=== PATIENT | male | born 2000 | race Caucasian/White ===

== ENCOUNTER 2022-07-05 12:29 | Outpatient (REF) | payer BC, SELFPAY ==
[2022-07-05 12:44] LABS: MANUAL DIFF FLAG NO
[2022-07-05 13:24] LABS: Basophils Absolute Auto 0.1 X10*3/uL (0.0-0.2); Basophils Percent Auto 0.6 % (0-2); Eosinophils Absolute Auto 0.2 X10*3/uL (0.0-0.4); Eosinophils Percent Auto 1.8 % (0-4); Hematocrit 50.3 % (42.0-52.0); Imm Gran Abs Auto 0.03 X10*3/uL (0.00-0.03); Imm Gran Pct Auto 0.3 % (0.0-0.4); Lymphocytes Absolute Auto 2.2 X10*3/uL (1.2-4.9); Lymphocytes Percent Auto 24.9 % (20-40); Mean Corpuscular HGB Conc 33.8 g/dl (31.0-36.0); Mean Corpuscular Hemoglobin 28.1 pg (27.0-33.0); Mean Corpuscular Volume 83.3 fL (80.0-98.0); Mean Platelet Volume 10.7 fL (9.4-12.4); Monocytes Absolute Auto 0.6 X10*3/uL (0.1-1.2); Monocytes Percent Auto 6.5 % (2-11); Neutrophils Absolute Auto 5.8 x10*3/uL (2.0-8.3); Neutrophils Percent Auto 65.9 % (45-73); Platelet Count 389 X10*3/uL (160-400); Red Blood Count 6.04 X10*6/uL (4.60-5.80); Red Cell Distribution Width 12.2 % (11.0-16.0); White Blood Count 8.8 X10*3/uL (4.8-10.8)
[2022-07-05 13:53] LABS: Alanine Aminotransferase 71 U/L (0-40); Albumin Level 4.8 g/dL (3.5-5.0); Alkaline Phosphatase 65 U/L (39-117); Anion Gap 15 (12-20); Aspartate Amino Transferase 30 U/L (5-37); Bilirubin Total 0.9 mg/dL (0.0-1.0); Blood Urea Nitrogen 17 mg/dL (9-16); Calcium 10.2 mg/dL (8.4-10.2); Carbon Dioxide 26 mmol/L (22-29); Chloride 106 mmol/L (96-108); Cholesterol 133 mg/dL; Estimated Glomerular Filt Rate > 60; Glucose Random 85 mg/dL (60-115); HDL Cholesterol 31 mg/dL; LDL Cholesterol Calculated 83 mg/dl; Potassium 4.8 mmol/L (3.3-5.1); Sodium 142 mmol/L (135-145); Total Protein 7.5 g/dL (6.5-8.0); Triglycerides 96 mg/dL
[2022-07-05 14:22] LABS: Folate 8.1 ng/mL (> or = 4.0); Thyroid Stimulating Hormone 1.36 uIU/mL (0.32-4.0); Vitamin B12 621 pg/mL (200-900)
== END 2022-07-05 12:30 | disposition home or self-care (01) ==
LOC: HO.LAB 12:29
PROVIDERS: PCP Internal Medicine; Visit Provider Internal Medicine
DX: E66.9 Obesity, unspecified (principal); E78.00 Pure hypercholesterolemia, unspecified
CPT/HCPCS: 36415; 80053; 80061; 82607; 82746; 84439; 84443; 85025

== ENCOUNTER 2022-07-31 09:26 | Outpatient (REF) | payer BC, SELFPAY ==
--- NOTE | ~2022-07-31 | US_ITS ---
EXAMINATION: US ABDOMEN LIMITED CLINICAL INFORMATION: Other specified abnormal findings of blood chemistry. COMPARISON: None available. TECHNIQUE: Real-time imaging of the right upper quadrant abdominal viscera. FINDINGS: PANCREAS: Not well seen due to shadowing from overlying bowel gas. LIVER: Enlarged measuring 17.4 cm in length. The liver contour is normal. Increased parenchymal echogenicity. No focal hepatic lesion. There is no intrahepatic biliary duct dilatation seen. GALLBLADDER: Normal. The gallbladder is physiologically distended without evidence of stones, sludge, polyps, wall thickening or pericholecystic fluid. COMMON BILE DUCT: Borderline dilated measuring 0.6 cm in diameter. RIGHT KIDNEY: Normal. No hydronephrosis. No renal calculi or focal parenchymal lesions. The kidney measures 11.0 cm in maximum dimension. FREE FLUID: None. US/US abdomen limited IMPRESSION: 1. Limited examination due to patient body habitus and shadowing from overlying bowel gas. 2. Hepatomegaly with increased parenchymal echogenicity which is nonspecific but most commonly on the basis of diffuse hepatocellular disease such as hepatic steatosis. 3. Borderline dilatation of the common bile duct. Correlate with liver function tests and if indicated MRCP could be obtained.
== END 2022-07-31 09:27 | disposition home or self-care (01) ==
LOC: HO.US 09:26
PROVIDERS: PCP Internal Medicine; Visit Provider Internal Medicine
DX: R79.89 Other specified abnormal findings of blood chemistry (principal)
CPT/HCPCS: 76705

== ENCOUNTER 2022-08-10 07:21 | Outpatient (REF) | payer BC, SELFPAY ==
[2022-08-10 15:03] LABS: Alanine Aminotransferase 54 U/L (0-40); Albumin Level 4.7 g/dL (3.5-5.0); Alkaline Phosphatase 65 U/L (39-117); Anion Gap 13 (12-20); Aspartate Amino Transferase 21 U/L (5-37); Bilirubin Total 1.1 mg/dL (0.0-1.0); Blood Urea Nitrogen 12 mg/dL (9-16); Calcium 10.1 mg/dL (8.4-10.2); Carbon Dioxide 29 mmol/L (22-29); Chloride 102 mmol/L (96-108); Estimated Glomerular Filt Rate > 60; Glucose Random 88 mg/dL (60-115); Potassium 3.9 mmol/L (3.3-5.1); Sodium 140 mmol/L (135-145); Total Protein 7.3 g/dL (6.5-8.0)
[2022-08-11 04:58] LABS: HBc Num1 0.06 S/CO (0.00-0.79); HBsAGNum1 0.29 S/CO (0.00-0.99); Hepatitis B Core Antibody Nonreactive (Nonreactive); Hepatitis B Surface Antigen Negative (Negative); ~HepC Num1 0.09 S/CO (0.00-0.79); ~Hepatitis B Surface Antibody NONREACTIVE (Nonreactive); ~Hepatitis C Antibody Nonreactive (Nonreactive)
== END 2022-08-10 07:22 | disposition home or self-care (01) ==
LOC: HO.LAB 07:21
PROVIDERS: PCP Internal Medicine; Visit Provider Internal Medicine
DX: R79.89 Other specified abnormal findings of blood chemistry (principal)
CPT/HCPCS: 36415; 80053; 86704; 86706; 86803; 87340

== ENCOUNTER 2023-04-23 12:25 | Outpatient (AMB) | payer BC, SELFPAY ==
--- NOTE | 2023-04-23 12:39 | A.OFFPC_ITS ---
Vital Signs 04/23/23 12:40 Height 6 ft 1.5 in Weight 218 lb 0.2 oz BMI 28.4 BP 112/72 Blood Pressure Location Lt brachial Position Sitting Pulse 92 Pulse Source Pulse Oximeter Pulse Oximetry (%) 99 Oxygen Delivery Method Room Air Intake Visit Reasons: PE Final Dressing Cutter Required: No Allergies No Known Allergies Allergy (Verified 04/23/23 12:40) Medication List - Last Reconciled 04/23/23 by Chester Akers MD No Known Home Meds Tobacco use date assessed: 04/23/23 Dental Screening Dental Screen Date: 04/23/23 Did you have a dental visit in the last 12 months?: Yes Did you have a dental problem in the last 6 months where you did not have access to dental care?: No Was dental information given to patient?: Patient has dentist HPI PE HPI Details 23-year-old overweight male(noted 24 lb weight loss coming in for physical exam last seen in April 2022. Had blood work done with elevated liver function tests and ultrasound of the abdomen requested showing hepatic steatosis. Patient is here for physical exam [facility] Medical History (Updated 04/23/23 @ 13:49 by Chester Akers MD) Hepatic steatosis LFT elevation Obesity (BMI 30-39.9) Surgical History (Updated 04/23/23 @ 13:48 by Cehster Akers MD) [place] teeth extracted Hx of tonsillectomy Family History (Updated 01/20/21 @ 15:50 by Chester Akers MD) Mother No problems noted. Father No problems noted. Maternal Grandfather H/O heart surgery Social History (Updated 04/23/23 @ 13:49 by Chester Akers MD) Housing: House Alcohol intake: current Comment: 3x a month= 1 bottle Patient Tobacco Use Status: Current someday Tobacco user Tobacco use type: Cigar Years Smoked: smokes cigar 1-3 x a year, 1 Q 3 month e-Cigarette/Vaping Use: Never Used Second Hand Smoke Exposure: No service: No Current occupational status: employed Cognitive needs: No Hearing needs: No Vision needs: No Questionnaire PHQ-9 Over the last 2 weeks, how often have you been bothered by any of the following problems? 1. Little interest or pleasure in doing things: not at all 2. Feeling down, depressed, or hopeless: not at all 3. Trouble falling or staying asleep, or sleeping too much: not at all 4. Feeling tired or having little energy: not at all 5. Poor appetite or overeating: not at all 6. Feeling bad about yourself - or that you are a failure or have let yourself or your family down: not at all 7. Trouble concentrating on things, such as reading the newspaper or watching television: not at all 8. Moving or speaking so slowly that other people could have noticed. Or the opposite - being so fidgety or restless that you have been moving around a lot more than usual: not at all 9. Thoughts that you would be better off or of hurting yourself in some way: not at all Total score: 0 Depression Screening Interpretation: Negative Depression Screening Done: Yes Source: Developed by Drs. Ramirez Willard, Terrie Nye, Guerrero Manning and colleagues, with an educational dawn from [employer]. Thrive Questionnaire Date Thrive assessed: 04/23/23 AUDIT C Alcohol Use Questionnaire (AUDIT-C) 1. How often do you have a drink containing alcohol?: Monthly or less 2. How many drinks containing alcohol do you have on a typical day when you are drinking?: 1 or 2 3. How often do you have six or more drinks on one occasion?: Never Total Score: 1 SANDRO-7 AMB Questionnaire SANDRO-7 Date SANDRO - 7 assessed: 04/23/23 Feeling nervous, anxious, or on edge: 0 = Not at all Not being able to stop or control worryin = Not at all Worrying too much about different things: 0 = Not at all Trouble relaxin = Not at all Being so restless that it is hard to sit still: 0 = Not at all Becoming easily annoyed or irritable: 0 = Not at all Feeling afraid as if something awful might happen: 0 = Not at all Total SANDRO-7 score (0-4 normal; 5-9 mild; 10-14 moderate; 15-21 severe): 0 Source: Developed by Drs. Ramirez Willard, Terrie Nye, Guerrero Manning and colleagues, with an educational dawn from [employer]. Review of Systems Const Denies poor appetite and Denies weakness Eyes Denies no additional complaints ENT Reports Normal hearing present, Denies dizziness, Denies nasal congestion, Denies tinnitus and Denies sore throat Card Denies chest pain, Denies syncope, Denies rapid heart rate and Denies dyspnea Resp Denies cough and Denies dyspnea GI Denies change in stool character, Reports constipation, Denies diarrhea, Denies nausea and Denies vomiting Denies dysuria and Denies urinary frequency Neuro Reports Normal hearing present, Denies confusion, Denies dizziness, Denies syncope and Denies weakness Psych Denies confusion Physical exam (Primary Care) Vital Signs: Last Vital Signs Pulse 92 04/23/23 12:40 BP 112/72 04/23/23 12:40 Pulse Ox 99 04/23/23 12:40 Oxygen Delivery Method Room Air 04/23/23 12:40 BMI result Body Mass Index 28.4 Tobacco/Smoking Status: Tobacco use Status Tobacco use date assessed 04/23/23 04/23/23 12:41 Patient Tobacco Use Status Current someday Tobacco 04/23/23 12:41 Tobacco use type Cigar 04/23/23 12:41 e-Cigarette/Vaping Use Never Used 04/23/23 12:41 PHQ-9: PHQ-9 Score PHQ-9: Total score 0 04/23/23 13:41 Depression Screening Interpretation: Negative Thrive Assessment: Date of Thrive Assessment Date Thrive assessed 04/23/23 04/23/23 12:41 Const General: No confusion Orientation/consciousness: No confusion HENMT Head: Yes normocephalic Ears: external ears normal and TM's normal bilaterally Face and sinus: Yes normal facial exam Mouth: moist mucous membranes Throat: Yes tonsils normal Eyes Conjunctivae: conjunctivae normal Pupils: Equal, round and reactive pupils present and Pupil accommodation reflex normal Direct Ophthalmoscopy: normal light reflex Neck Neck: No lymphadenopathy Thyroid: Thyroid normal Chest Chest palpation & inspection: normal inspection of the chest Resp Effort & Inspection: normal respiratory effort and no audible wheezes Auscultation: clear to auscultation bilaterally, no crackles, no wheezes and lung sounds not diminished Cardio Rate: regular rate Rhythm: regular rhythm Peripheral pulses: radial pulses present and dorsalis pedis present GI Other: visual check negative Palpation (GI): no masses Auscultation: normal bowel sounds and normoactive bowel sounds Rectal Exam - Male: Yes deferred Male General Exam: Yes normal external exam Skin General skin exam: no rashes or lesions noted Rashes: no rashes Neuro General: No confusion Cranial nerves: Yes Equal, round and reactive pupils present and Yes Normal hearing present Cognition (Neuro): normal cognition Gait exam (Neuro): Normal gait present Motor exam (neuro): 5/5 motor strength present throughout Deep tendon reflexes (DTR's): Right brachioradialis reflex intensity grade: 2+, Left brachioradialis reflex intensity grade: 2+, Right patellar reflex intensity grade: 2+ and Left patellar reflex intensity grade: 2+ Extrem General: No edema Office Procedures Flu Questionnaire Does the patient have a severe egg allergy?: No Does the patient have severe life threatening allergies?: No Does the patient have a fever or illness today?: No Has the patient ever had Guillain-[place] Syndrome?: No Has the patient ever had any past reaction to a flu shot?: No Immunizations flu vacc [id number] 6mos up(PF) 60 mcg(15 mcgx4)/0.5 mL IM syringe Performing Provider: Chester Akers MD Performing Location: [facility] Administered by: MELISSA Burkett on 04/23/23 13:40 Dose Route Admin Location Dispensed Lot Number Expiration Date 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3 - Overweight (4) Tobacco abuse: Code(s): Z72.0 - Tobacco use Plan: advised to stop. Orders: Orders Comprehensive Met. Panel Today K76.0 - Fatty (change of) liver, not elsewhere classified Thyroid Stimulating Hormone Today K76.0 - Fatty (change of) liver, not elsewhere classified Vitamin B12 and Folate Today K76.0 - Fatty (change of) liver, not elsewhere classified Lipid Panel Today E78.00 - Pure hypercholesterolemia, unspecified, K76.0 - Fatty (change of) liver, not elsewhere classified Influenza [id number] Immunization Today Z23 - Encounter for immunization Complete Blood Count Auto Diff Today K76.0 - Fatty (change of) liver, not elsewhere classified Free T4 (Free Thyroxine) Today K76.0 - Fatty (change of) liver, not elsewhere classified Patient Instructions: Continue with diet and exercise Coding Level of Care Code Est Pt Prev Care [id number]) Diagnoses Annual physical exam Z00.00 Hepatic steatosis K76.0 Overweight (BMI 25.0-29.9) E66.3 Tobacco abuse Z72.0 Additional Codes PHQ-9 - 81819 - PHQ-9 Billing: ([id number])
[2023-04-23 12:40] VITALS: BP 112/72; PULSE 92; O2SAT 99; BMI 28.4
== END 2023-04-23 13:58 | disposition home or self-care (01) ==
PROVIDERS: Visit Provider Internal Medicine
DX: Z00.00 Encounter for general adult medical examination without abnormal findings (principal); K76.0 Fatty (change of) liver, not elsewhere classified; E66.3 Overweight; Z72.0 Tobacco use; Z23 Encounter for immunization
CPT/HCPCS: 90471; 90686; 99395

== ENCOUNTER 2024-06-10 14:57 | Outpatient (AMB) | payer BC, SELFPAY ==
--- NOTE | 2024-06-10 15:02 | A.OFFPC_ITS ---
Vital Signs 06/10/24 15:12 Height 6 ft 1.5 in Weight 216 lb 4 oz BMI 28.1 BP 138/80 Blood Pressure Location Lt brachial Position Sitting Pulse 88 Pulse Source Pulse Oximeter Temp 97.3 F Temp Source Temporal Artery Scan Pulse Oximetry (%) 98 Oxygen Delivery Method Room Air Intake Visit Reasons: PE Intake Note: Patient is here today for a physical. Sleep Technician Required: No Accompanied by: Self / Same As Patient Allergies old spice Allergy (Intermediate, Uncoded 06/10/24 15:49) skin rash Medication List - Last Reconciled 06/10/24 by Chester Akers MD No Known Home Meds Tobacco use date assessed: 06/10/24 Dental Screening Dental Screen Date: 06/10/24 Did you have a dental visit in the last 12 months?: Yes Did you have a dental problem in the last 6 months where you did not have access to dental care?: No Was dental information given to patient?: Patient has dentist [facility] Medical History (Updated 04/23/23 @ 13:49 by Chester Akers MD) Hepatic steatosis LFT elevation Obesity (BMI 30-39.9) Surgical History [place] teeth extracted Hx of tonsillectomy Family History Mother No problems noted. Father No problems noted. Maternal Grandfather H/O heart surgery Social History (Updated 06/10/24 @ 15:53 by Chester Akers MD) Housing: House Alcohol intake: current Comment: 3x a month= 1 bottle,2 x a month sip Patient Tobacco Use Status: Current someday Tobacco user Tobacco use type: Cigar Years Smoked: smokes cigar 11 a month smoke e-Cigarette/Vaping Use: Never Used Second Hand Smoke Exposure: No service: No Current occupational status: employed Cognitive needs: No Hearing needs: No Vision needs: No Questionnaire PHQ-9 Over the last 2 weeks, how often have you been bothered by any of the following problems? 1. Little interest or pleasure in doing things: not at all 2. Feeling down, depressed, or hopeless: not at all 3. Trouble falling or staying asleep, or sleeping too much: not at all 4. Feeling tired or having little energy: not at all 5. Poor appetite or overeating: not at all 6. Feeling bad about yourself - or that you are a failure or have let yourself or your family down: not at all 7. Trouble concentrating on things, such as reading the newspaper or watching television: not at all 8. Moving or speaking so slowly that other people could have noticed. Or the opposite - being so fidgety or restless that you have been moving around a lot more than usual: not at all 9. Thoughts that you would be better off or of hurting yourself in some way: not at all Total score: 0 Depression Screening Interpretation: Negative Depression Screening Done: Yes 56302 - PHQ-9 Billing: Yes Source: Developed by Drs. Ramirez Willard, Terrie Nye, Guerrero Manning and colleagues, with an educational dawn from [employer]. Thrive Questionnaire Date Thrive assessed: 06/10/24 I am a: Patient What is your living situation today?: I have a steady place to live Within the past 12 months, did the food you bought not last and you didn't have the money to get more?: Never true Within the past 12 months, did you worry whether your food would run out before you got money to buy more?: Never true Do you have trouble paying for medicines?: No Do you have trouble getting transportation to medical appointments?: No Do you have trouble paying your heating and electricity bill?: No Do you have trouble taking care of your child, family member or friend?: No Do you have trouble with day-to-day activities such as bathing, preparing meals, shopping, managing finances, etc.?: No Are you currently unemployed and looking for a job?: No Are you interested in more education?: Yes Please select the resources that you would like help with: None Currently or been in a relationship where the following occur: No concerns reported THRIVE Score: 0 AUDIT C Alcohol Use Questionnaire (AUDIT-C) 1. How often do you have a drink containing alcohol?: Monthly or less 2. How many drinks containing alcohol do you have on a typical day when you are drinking?: 1 or 2 3. How often do you have six or more drinks on one occasion?: Never Total Score: 1 SANDRO-7 AMB Questionnaire SANDRO-7 Date SANDRO - 7 assessed: 06/10/24 Feeling nervous, anxious, or on edge: 0 = Not at all Not being able to stop or control worryin = Not at all Worrying too much about different things: 0 = Not at all Trouble relaxin = Not at all Being so restless that it is hard to sit still: 0 = Not at all Becoming easily annoyed or irritable: 0 = Not at all Feeling afraid as if something awful might happen: 0 = Not at all Total SANDRO-7 score (0-4 normal; 5-9 mild; 10-14 moderate; 15-21 severe): 0 Source: Developed by Drs. Ramirez Willard, Terrie Nye, Guerrero Manning and colleagues, with an educational dawn from [employer]. SANDRO-7 Assessment Billing SANDRO-7 Assessment Tool: SANDRO-7 Assessment 07301 Review of Systems Const Denies poor appetite and Denies weakness Eyes Denies no additional complaints ENT Reports Normal hearing present, Denies dizziness, Denies nasal congestion, Denies tinnitus and Denies sore throat Card Denies chest pain, Denies syncope, Denies rapid heart rate and Denies dyspnea Resp Denies cough and Denies dyspnea GI Denies change in stool character, Reports constipation, Denies diarrhea, Denies nausea and Denies vomiting Denies dysuria and Denies urinary frequency Neuro Reports Normal hearing present, Denies confusion, Denies dizziness, Denies syncope and Denies weakness Psych Denies confusion Physical exam (Primary Care) Vital Signs: Last Vital Signs Temp 97.3 F 06/10/24 15:12 Pulse 88 06/10/24 15:12 BP 138/80 06/10/24 15:12 Pulse Ox 98 06/10/24 15:12 Oxygen Delivery Method Room Air 06/10/24 15:12 BMI result Body Mass Index 28.1 Tobacco/Smoking Status: Tobacco use Status Tobacco use date assessed 06/10/24 06/10/24 15:03 Patient Tobacco Use Status Current someday Tobacco 06/10/24 15:53 Tobacco use type Cigar 06/10/24 15:53 e-Cigarette/Vaping Use Never Used 06/10/24 15:53 PHQ-9: PHQ-9 Score PHQ-9: Total score 0 06/10/24 16:08 Depression Screening Interpretation: Negative Thrive Assessment: Date of Thrive Assessment Date Thrive assessed 06/10/24 06/10/24 15:03 Currently or been in a relationship where the following occur: No concerns r eported Const General: No confusion Orientation/consciousness: No confusion HENMT Head: Yes normocephalic Ears: external ears normal and TM's normal bilaterally Face and sinus: Yes normal facial exam Mouth: moist mucous membranes Throat: Yes tonsils normal Eyes Conjunctivae: conjunctivae normal Pupils: Equal, round and reactive pupils present and Pupil accommodation reflex normal Direct Ophthalmoscopy: normal light reflex Neck Neck: No lymphadenopathy Thyroid: Thyroid normal Chest Chest palpation & inspection: normal inspection of the chest Resp Effort & Inspection: normal respiratory effort and no audible wheezes Auscultation: clear to auscultation bilaterally, no crackles, no wheezes and lung sounds not diminished Cardio Rate: regular rate Rhythm: regular rhythm Peripheral pulses: radial pulses present and dorsalis pedis present GI Palpation (GI): no masses Auscultation: normal bowel sounds and normoactive bowel sounds Rectal Exam - Male: Yes deferred Skin General skin exam: no rashes or lesions noted Rashes: no rashes Neuro General: No confusion Cranial nerves: Yes Equal, round and reactive pupils present and Yes Normal hearing present Cognition (Neuro): normal cognition Gait exam (Neuro): Normal gait present Motor exam (neuro): 5/5 motor strength present throughout Deep tendon reflexes (DTR's): Right brachioradialis reflex intensity grade: 2+, Left brachioradialis reflex intensity grade: 2+, Right patellar reflex intensity grade: 2+ and Left patellar reflex intensity grade: 2+ Extrem General: No edema Office Procedures Flu Questionnaire Does the patient have a severe egg allergy?: No Does the patient have severe life threatening allergies?: No Does the patient have a fever or illness today?: No Has the patient ever had Guillain-[place] Syndrome?: No Has the patient ever had any past reaction to a flu shot?: No Immunizations Fluarix Triv [id number] (PF) 45 mcg (15 mcg x 3)/0.5 mL IM syringe Performing Provider: Chester Akers MD [place] [facility] Administered by: RHODA Patel on 06/10/24 16:07 Dose Route Admin Location Dispensed Lot Number Expiration Date NDC Visual Journalist 0.5 mL IM Left Deltoid 0.5 mL [id number] 10/06/24 [id number] [employer] VIS Given Date VIS Provided VIS Publication Date 06/10/24 Single Vaccine 20 Eligibility Eligibility Date Funding Source Not VFC Eligible 06/10/24 Private Coding Level of Care Code Est Pt Prev Care 18-39y(19528) Diagnoses Annual physical exam Z00.00 Hepatic steatosis K76.0 Overweight (BMI 25.0-29.9) E66.3 Tobacco abuse Z72.0 Additional Codes SANDRO-7 Assessment Billing - SANDRO-7 Assessment Tool: SANDRO-7 Assessment 93759 ([id number]) PHQ-9 - 22826 - PHQ-9 Billing: Yes ([id number]) Assessment & Plan Assessment & Plan (1) Annual physical exam: Code(s): Z00.00 - Encounter for general adult medical examination without abnormal findings Category: Medical Plan: Patient is advised to eat healthy, keep well hydrated, keep active and have adequate sleep. (2) Hepatic steatosis: Code(s): K76.0 - Fatty (change of) liver, not elsewhere classified Category: Medical Plan: Low-fat diet and exercise (3) Overweight (BMI 25.0-29.9): Code(s): E66.3 - Overweight Category: Medical Plan: Diet and exercise (4) Tobacco abuse: Code(s): Z72.0 - Tobacco use Category: Medical Plan: Patient is strongly advised to stop smoking Plan History of Present Illness The patient is a 24-year-old male presenting for a wellness exam. He has a history of hepatic steatosis diagnosed by abdominal ultrasound in July 2022, following elevated liver function tests in June 2022. His blood count, electrolytes, renal function, cholesterol, thyroid function, and vitamin B12 levels were normal at that time. He has been previously advised to adopt a low- fat diet, engage in exercise, and quit smoking to address these health concerns. Currently, the patient smokes cigars weekly and uses marijuana. Alcohol intake is limited to small quantities on two occasions per month. He mentioned no new significant symptoms aside from a stomach illness last March that has since resolved. Health Maintenance - Low-fat diet and regular exercise recommended for hepatic steatosis management - Advised cessation of smoking - Received regular flu shots; updated vaccination scheduled for today's visit - Tetanus vaccination discussed for future update - Discussion on the risks associated with smoking tobacco and marijuana, including increased risk of heart attacks and strokes Social History - Current smoker: Cigars weekly, marijuana use noted, no cigarette use - Overweight, instructed on diet and exercise regimen for weight management - Alcohol consumption minimal, generally small amounts twice a month - No current medications or supplements reported - Stable living situation and supportive family, no employment or housing issues discussed Review of Systems - Gastrointestinal: Denies current nausea, vomiting. Reports previous stomach bug resolved. - Musculoskeletal: Denies muscle pain post-exercise. - Neurological: Denies dizziness, syncope. - Respiratory: Denies chest pain, shortness of breath. - ENTs: Denies hearing problems, reports self-inflicted ear trauma with Q-tip use. - Constitutional: Denies fever, weight changes. Physical Exam General: Cooperative, healthy appearing, comfortable, no acute distress and well developed Orientation: Patient oriented x3 Limitations: No limitations Head: Normal to inspection Ears: Hearing grossly normal bilaterally, bruise noted in the ear due to Q-tip use Nose: Normal external nose present Face and sinus: Normal facial exam Eyes: Appearance normal, both eyes and all related structures, wears glasses Neck: Normal visual inspection and Yes full ROM Respiratory: Normal respiratory effort and able to speak in complete sentences. Clear to auscultation bilaterally Cardiovascular: Regular rate and rhythm. Normal S1 and S2 GI: Normal to inspection. Soft to palpation and nontender Skin: No rashes or lesions noted, previous rash from deodorant resolved Neuro: Patient oriented x3 Extremities: Normal to inspection Results - Labs: Previous blood work (June 2022) normal except for elevated liver function tests - Imaging: Abdominal ultrasound (July 2022) confirmed hepatic steatosis Plan The emphasis is on maintaining a low-fat diet and exercising regularly to manage hepatic steatosis. Cigarette cessation is critical due to the heightened risks of cardiovascular events and worsening liver function. Minimizing marijuana use and obtaining routine vaccinations, including the upcoming flu shot, are essential for his health. He has agreed to undertake fasting blood work to update his current liver function status. Physical activity levels should be moderated to prevent strain-related injuries. Patient was informed and verbally consented to the use of an ambient scribe for clinic note documentation during this visit. Discussion Notes I discussed the importance of maintaining a low-fat diet and regular exercise to address the hepatic steatosis and overweight status with the patient. We addressed the risks associated with smoking tobacco and marijuana, including increased cardiovascular events. We also talked about potential health consequences and the necessity of cessation. Fasting blood work is ordered to reassess liver functions. I informed the patient about the upcoming flu vaccination and advised a tetanus booster in future. He was made aware of the non-emergency nature of the findings and the preventive measures needed moving forward. Patient Instructions - Follow a low-fat diet to help manage liver health. - Engage in regular exercise to aid weight management. - Stop smoking cigars; minimize marijuana use due to cardiovascular risks. - Attend scheduled flu vaccination and plan for a tetanus booster. - Obtain upcoming lab work after fasting. - Take precautions with physical activity to prevent hernia or other musculoskeletal issues. Orders: Orders Influenza [id number] Immunization Today Z23 - Encounter for immunization Lipid Panel Today E78.00 - Pure hypercholesterolemia, unspecified, K76.0 - Fatty (change of) liver, not elsewhere classified Vitamin B12 and Folate Today K76.0 - Fatty (change of) liver, not elsewhere classified Complete Blood Count Auto Diff Today K76.0 - Fatty (change of) liver, not elsewhere classified Comprehensive Met. Panel Today K76.0 - Fatty (change of) liver, not elsewhere classified Free T4 (Free Thyroxine) Today K76.0 - Fatty (change of) liver, not elsewhere classified Thyroid Stimulating Hormone Today K76.0 - Fatty (change of) liver, not elsewhere classified
[2024-06-10 15:12] VITALS: BP 138/80; PULSE 88; TEMP 36.3; O2SAT 98; BMI 28.1
== END 2024-06-10 16:10 | disposition home or self-care (01) ==
PROVIDERS: PCP Internal Medicine; Visit Provider Internal Medicine
DX: Z00.00 Encounter for general adult medical examination without abnormal findings (principal); K76.0 Fatty (change of) liver, not elsewhere classified; E66.3 Overweight; Z72.0 Tobacco use; Z23 Encounter for immunization

== ENCOUNTER → 2024-06-10 14:57 | Outpatient (BNVA) | payer BC, SELFPAY | PROVIDERS: PCP Internal Medicine; Visit Provider Internal Medicine | DX: Z00.00 Encounter for general adult medical examination without abnormal findings (principal); Z23 Encounter for immunization; K76.0 Fatty (change of) liver, not elsewhere classified; E66.3 Overweight; Z68.28 Body mass index [BMI] 28.0-28.9, adult; Z72.0 Tobacco use | CPT/HCPCS: 90471; 90656; 96127 ==

== ENCOUNTER 2024-07-18 07:21 | Outpatient (REF) | payer BC, SELFPAY ==
[2024-07-18 07:33] LABS: MANUAL DIFF FLAG NO
[2024-07-18 07:57] LABS: Basophils Absolute Auto 0.1 X10*3/uL (0.0-0.2); Basophils Percent Auto 0.9 % (0-2); Eosinophils Absolute Auto 0.4 X10*3/uL (0.0-0.4); Eosinophils Percent Auto 4.6 % (0-4); Hematocrit 47.7 % (42.0-52.0); Hemoglobin 16.6 g/dl (14.0-18.0); Imm Gran Abs Auto 0.03 X10*3/uL (0.00-0.03); Imm Gran Pct Auto 0.4 % (0.0-0.4); Lymphocytes Absolute Auto 2.2 X10*3/uL (1.2-4.9); Lymphocytes Percent Auto 28.7 % (20-40); Mean Corpuscular HGB Conc 34.8 g/dl (31.0-36.0); Mean Corpuscular Hemoglobin 28.1 pg (27.0-33.0); Mean Corpuscular Volume 80.8 fL (80.0-98.0); Mean Platelet Volume 10.1 fL (9.4-12.4); Monocytes Absolute Auto 0.6 X10*3/uL (0.1-1.2); Monocytes Percent Auto 7.1 % (2-11); Neutrophils Absolute Auto 4.5 x10*3/uL (2.0-8.3); Neutrophils Percent Auto 58.3 % (45-73); Platelet Count 328 X10*3/uL (160-400); Red Cell Distribution Width 12.4 % (11.0-16.0); White Blood Count 7.8 X10*3/uL (4.8-10.8)
[2024-07-18 08:29] LABS: Alanine Aminotransferase 36 U/L (0-40); Albumin Level 4.5 g/dL (3.5-5.0); Alkaline Phosphatase 60 U/L (39-117); Anion Gap 10 (12-20); Aspartate Amino Transferase 21 U/L (5-37); Bilirubin Total 0.6 mg/dL (0.0-1.0); Blood Urea Nitrogen 15 mg/dL (9-16); Calcium 9.7 mg/dL (8.4-10.2); Carbon Dioxide 28 mmol/L (22-29); Chloride 107 mmol/L (96-108); Cholesterol 113 mg/dL (<200); Estimated Glomerular Filt Rate > 60; Glucose Random 95 mg/dL (60-115); HDL Cholesterol 33 mg/dL (>40); LDL Cholesterol Calculated 68 mg/dL (<100); Potassium 4.3 mmol/L (3.3-5.1); Sodium 141 mmol/L (135-145); Total Protein 7.4 g/dL (6.5-8.0); Triglycerides 63 mg/dL (<150)
[2024-07-18 08:45] LABS: Free T4 (Free Thyroxine) 1.13 ng/dL (0.71-1.85); Thyroid Stimulating Hormone 1.95 uIU/mL (0.32-4.0)
[2024-07-18 08:56] LABS: Vitamin B12 488 pg/mL (200-900)
== END 2024-07-18 07:22 | disposition home or self-care (01) ==
LOC: HO.LAB 07:21
PROVIDERS: PCP Internal Medicine; Visit Provider Internal Medicine
DX: K76.0 Fatty (change of) liver, not elsewhere classified (principal); E78.00 Pure hypercholesterolemia, unspecified
CPT/HCPCS: 36415; 80053; 80061; 82607; 82746; 84439; 84443; 85025